=== PATIENT | female | born 1990 | race Caucasian/White ===

== ENCOUNTER 2023-05-19 10:19 | Day surgery (SDC) | payer BC ==
[~2023-05-19] VITALS: Ht 167.6 cm; Wt 105.7 kg
--- NOTE | ~2023-05-19 | CONS ---
[facility] [address], [place] [address] Draft DATE OF CONSULTATION: REQUESTING PHYSICIAN: Zackary HISTORY OF PRESENT ILLNESS: The patient is a 32-year-old female, 1, who was diagnosed with a missed AB on ultrasound approximately May 03. She received Cytotec on May 06 and had passage of clots and heavy bleeding intermittently since then, which decreased. She began having worsening bleeding and pain over the last couple of days and because of the increasing pain, she came to the emergency room for evaluation. She denied any fever. She did believe she had passed some tissue previously. She has not had an office followup as of yet. PAST MEDICAL HISTORY: Surgeries: None. Hospitalizations: None. Illnesses: History of hypertension, which resolved with weight loss. Negative for diabetes kidney problems. ALLERGIES: No known allergies. MEDICATIONS: None. HABITS: Positive for tobacco. She is vaping daily. Positive for rare alcohol use. Positive for marijuana use. PHYSICAL EXAMINATION: VITAL SIGNS: Blood pressure is 139/93, pulse 53, temp 98. GENERAL: She is a well-developed, well-nourished female, in no acute distress. HEART: Regular rate and rhythm without murmur. LUNGS: Clear. ABDOMEN: Had active bowel sounds. Soft, nontender. PELVIC: Deferred as it had been done by the ER physician. IMAGING DATA: Ultrasound revealed a diffusely expanded endometrial and endocervical canal. LABORATORY DATA: Her H and H were 14 and 41.7 and white count was 13.5 with segs of 85.2. Quant was 869, and it was initially over 17,000 on her diagnosis. The CMP was normal. PATIENT NAME: SAUL CROWELL CONSULTATION DATE OF : [birth year] REPORT #: [id number] PHYSICIAN: NICOLE LAU MD PCP: WHIT JESSICA PAC REPORT IS CONFIDENTIAL AND NOT TO BE RELEASED WITHOUT AUTHORIZATION [facility] [address] [facility] [place] [address] Draft IMPRESSION: Incomplete with worsening pain and bleeding consistent with retained tissue. I feel D and C would be in her best interest at this point. The risks of surgery including, but not limited to, infection and bleeding were all discussed. She had no questions information. PLAN: Suction D and C as soon as this can be arranged. Nicole Lau MD PJRaciel/RANJIT /[id number] Copies: ~ PATIENT NAME: SAUL CROWELL CONSULTATION DATE OF : [birth year] REPORT #: [id number] PHYSICIAN: NICOLE LAU MD PCP: WHIT JESSICA PAC REPORT IS CONFIDENTIAL AND NOT TO BE RELEASED WITHOUT AUTHORIZATION
[2023-05-19 11:58] LABS: BASOPHILS 0.2 % (0-2); EOSINOPHILS 0.2 % (0-6); HEMATOCRIT 41.7 % (35.0-50.0); LYMPHOCYTES 10.7 % (24-44); MCH 30.3 (27-36); MCHC 33.6 g/dl (30-36); MCV 90.2 fl (81-99); MONOCYTES 3.7 % (0-12); NEUTROPHILS 85.2 % (39-80); PLATELET COUNT 248 K/uL (140-440); RBC 4.62 M/ul (4.3-5.7); RDW 13.5 (10.5-15.0)
[2023-05-19 12:28] LABS: ALBUMIN 3.9 g/dL (3.4-5.0); ALBUMIN/GLOBULIN RATIO 1.3 (1.1-2.4); ANION GAP 12.7 (7-21); BILIRUBIN, TOTAL 0.5 ng/dL (0.2-1.0); BUN/CREATININE RATIO 17.47 (6.0-28.6); CREATININE, SERUM 1.03 mg/dL (0.55-1.02); POTASSIUM 3.7 mmol/L (3.5-5.1); PROTEIN, TOTAL 6.9 g/dL (6.4-8.2)
[2023-05-19 12:38] LABS: ABO AB; ANTIBODY SCREEN NEGATIVE; RH NEGATIVE
--- NOTE | 2023-05-19 14:55 | NUR ---
05/19/23 1455 Prudence Fink 1439- PT ARRIVES TO PACU IN SUPINE POSITION. PT NON REACTIVE TO STIMULUS. 6L O2 PER MASK, LR WITH 30 UNITS OF OXYTOCIN INFUSING TO LAC IV. RADHA PAD IN PLACE WITH SMALL AMOUNT OF BLOODY DRAINAGE. ALL MONITORS APPLIED. 1443- PT IS REACTIVE TO TACTILE STIMULUS. PLACED ON ROOM AIR AT THIS TIME. DENIES PAIN AND NAUSEA. WILL CONTINUE TO MONITOR. 1448- PT RESTING, DESATS TO 88%. ENCOURAGED TO DEEP BREATH, SATS TO 89%. PLACED ON 2L O2 PER NC, SATS TO MID 90'S. PT WILL WAKE TO ANSWER QUESTIONS AND THEN BACK TO RESTING. BREATHING EVEN AND NON LABORED. WILL CONTINUE TO MONITOR.
--- NOTE | 2023-05-19 15:20 | NUR ---
PT ARRIVES TO DAY SURGERY ROOM #4 DROWSY WITH HER EYES OPEN. PT DENIES ANY PAIN OR NAUSEA. PT UDPATED ON PLAN OF CARE. PT PROVIDED ICE WATER AND CRACKERS PER HER REQUEST. BED IN THE LOWEST POSITION, BED RAIL UP X1, CALL LIGHT PROVIDED, PT'S AND MOTHER AT THE BEDSIDE. PLAN OF CARE AND TIME TO BE IN DAY SURGERY DISCUSSED. PT STATES UNDERSTANDING.
[2023-05-19 15:24] VITALS: BP 144/89
[2023-05-19] MEDS ORDERED: MOTRIN IB200 MG PO (16:02)
[2023-05-19] MEDS ORDERED: TYLENOL EXTRA500 MG PO (16:03)
[2023-05-19 16:27] VITALS: BP 131/88
--- NOTE | 2023-05-21 12:29 | OR ---
[facility] [address] [facility] [place], [place] [address] Signed DATE OF OPERATION: 05/19/2023 SURGEON: Katy Lau MD PREOPERATIVE DIAGNOSIS: Incomplete . POSTOPERATIVE DIAGNOSIS: Incomplete . PROCEDURE: Suction D and C. ANESTHESIA: General, LMA. ESTIMATED BLOOD LOSS: 150 mL. DRAINS: None. INDICATIONS AND FINDINGS: The patient is a 32-year-old female, who was diagnosed with a missed AB. She received a dose of Cytotec to help pass the tissue. She had some heavy bleeding with some passage of tissue, she believed on the . However, since that time, she has had continued light bleeding. Over the last several days she has been having increasing bleeding as well as increasing cramping. She presented to the emergency room today because of the pain. At the time of surgery, there was a large amount of tissue at the cervical os. The cervix was open. The uterus was enlarged approximately 10 weeks size. DESCRIPTION OF PROCEDURE: The patient was prepped and draped in the dorsal lithotomy position. An open-sided speculum was placed. The anterior lip of the cervix was visualized and grasped with a single-tooth tenaculum. There was a large amount of tissue at the cervix and this was removed with a ring forceps. It was approximately 4 cms in diameter. The endocervical canal easily accepted a #10 dilator. A #10 curved suction curette was introduced and suction curettage was done with removal of a large amount of tissue. Sharp curettage was also done to be sure the cavity was clean. This was alternated with suction curettage until it was felt the cavity was clean and contracted. Electronically Signed By: KATY LAU MD 05/21/23 1229 PATIENT NAME: SAUL CROWELL OPERATIVE REPORT DATE OF : [birth year] REPORT #: [id number] PHYSICIAN: KATY LAU MD PCP: WHIT JESSICA PAC REPORT IS CONFIDENTIAL AND NOT TO BE RELEASED WITHOUT AUTHORIZATION [facility] [address] [place], [place] [address] Signed The tenaculum was removed from the cervix. There was initially some bleeding from the right tenaculum site and this was controlled with pressure only. There was no evidence of any ongoing bleeding. The procedure was terminated. All sponge and needle counts were correct. She was taken to the recovery room in good condition. Katy Lau MD PJW/MODL /[id number] Copies: ~ Electronically Signed By: KATY LAU MD 05/21/23 1229 PATIENT NAME: SAUL CROWELL OPERATIVE REPORT DATE OF : 89 REPORT #: [id number] PHYSICIAN: KATY LAU MD PCP: WHIT JESSICA PAC REPORT IS CONFIDENTIAL AND NOT TO BE RELEASED WITHOUT AUTHORIZATION
== END 2023-05-19 16:40 | disposition home or self-care (01) ==
LOC: ED 10:19 → MS 10:20 → ED 10:20 → MS 10:20 → DS 13:36 → DSVR 13:36 → DS 16:40 → MS 16:40
PROVIDERS: Emergency Medicine; ATTEND Obstetrics & Gynecology
PROC: 10D17ZZ Extraction of Products of Conception, Retained, Via Natural or Artificial Opening (ICD-10-PCS; principal; 2023-05-19 13:30)
DX: O03.4 Incomplete spontaneous abortion without complication (principal)
CPT/HCPCS: 01965; 36415; 76856; 80053; 84702; 85025; 86850; 86900; 86901; J0690; J1100; J1170; J1885; J2250; J2405; J2590; J2704; J2765; J3010; J7121